=== PATIENT | male | born 1965 | race Caucasian/White ===

== ENCOUNTER 2020-06-26 10:00 | Inpatient (IN) | payer BC, OTHER ==
[~2020-06-26] VITALS: Ht 193 cm; Wt 68.0 kg
--- NOTE | 2020-06-26 10:18 | Emergency Department Note ---
History of Present Illnes History of Present Illness History of Present Illness This is a 54 year old male smoker, COPD , c/o right sided C/P sharp, pleurisy for few days getting worse . Arrival Mode: Car Food Products Sales Representative Required: No Onset (how long ago): day(s) Radiation: Reports flank Severity: moderate Onset quality: gradual Duration (how long): day(s) Progression: waxing and waning Chronicity: new Relieving factors: none Associated symptoms: Reports denies other symptoms Treatments prior to arrival: none Past Medical/Family History Physician Review I have reviewed the patient's past medical and family history. Any updates have been documented here. Past Medical History Recent Fever: No Clinical Suspicion of Infectio: No Other Medical History: COPD Past Surgical History: Appendectomy Social History Smoking Cessation: Current every day smoker Any Illegal Drug Use: No TB Exposure/Symptoms: No Physically hurt or threatened: No Family History Family history of heart diseas: No Other Any Pre-Existing Lines (PICC,: No Review of Systems Review of Systems Constitutional: Reports no symptoms EENTM: Reports no symptoms Cardiovascular: Reports as per HPI, Reports chest pain Respiratory: Reports as per HPI, Reports cough, Reports pain on inspiration, Reports pain with cough Gastrointestinal: Reports no symptoms Genitourinary: Reports no symptoms Musculoskeletal: Reports no symptoms Integumentary: Reports no symptoms Neurological: Reports no symptoms Psychological: Reports no symptoms Endocrine: Reports no symptoms Hematological/Lymphatic: Reports no symptoms Physical Exam Related Data Allergies: Coded Allergies: No Known Allergies (Unverified , 12/01/19) Vital signs reviewed: Yes Physical Exam CONSTITUTIONAL Constitutional: Present well-developed, Present well-nourished HENT HENT: Present normocephalic, Present atraumatic, Present oropharynx clear/moist, Present nose normal HENT L/R: Present left ext ear normal, Present right ext ear normal EYES Eyes: Reports PERRL, Reports conjunctivae normal NECK Neck: Present ROM normal PULMONARY Pulmonary: Present effort normal, Present chest tenderness, Present other (diminished BS on the right ) CARDIOVASCULAR Cardiovascular: Present regular rhythm, Present heart sounds normal, Present capillary refill normal, Present normal rate GASTROINTESTINAL Abdominal: Present soft, Present nontender, Present bowel sounds normal GENITOURINARY Genitourinary: Present exam deferred SKIN Skin: Present warm, Present dry MUSCULOSKELETAL Musculoskeletal: Present ROM normal NEUROLOGICAL Neurological: Present alert, Present oriented x 3, Present no gross motor or sensory deficits PSYCHOLOGICAL Psychological: Present mood/affect normal, Present judgement normal Results Laboratory Lab results reviewed: Yes Imaging Imaging results reviewed: Yes Diagnostics Tests Diagnostic comments post chest Tube: no pneumo seen Procedures 12 Lead ECG Interpretation ECG Interpretation : ECG: ECG 1 Food Products Sales Representative: Interpreted by ED physician Date: Jun 26, 2020 Time: 10:11 Prior ECG tracings: reviewed Rhythm: sinus tachycardia QRS axis: normal ST segments normal: Yes Clinical Impression: abnormal ECG Chest Tube Placement Chest Tube : Chest tube: chest tube 1 Chest tube location: right, mid axillary line Chest tube prep: betadine prep Amount of anesthesia used (mL): 8 Incision made with: #11 blade Post procedure: sutured to skin, sterile dressing applied Tube drainage: none Post procedure chest xray: Yes Patient tolerated procedure: Yes Progress pneumothorax kits use, 8 Fr tube Perimortem Patient tolerated procedure: well Additional comments pt received 4 mg morphine, 2 mg ativan Assessment & Plan Medical Decision Making MDM pna, Cancer, PE, chest wall pain Reassessment Reassessment time: 13:14 Reassessment doing better Assessment & Plan Final Impression: (1) Pneumothorax, acute (2) Pneumothorax on right (3) Chest pain in adult Depart Disposition: ADMITTED Home Meds No Active Prescriptions or Reported Meds Physician Attestation Provider Attestation case discussed with Dr Sanabria and JEANETH Holguin MD Jun 26, 2020 10:18
--- NOTE | 2020-06-26 10:35 | Diagnostic Imaging Report ---
EXAMINATION: CXR 2 VIEW - HOPD INDICATION: Shortness of breath, chest pain COMPARISON: None FINDINGS: LINES/TUBES:None LUNGS:The lungs are well-inflated. No focal consolidation or pulmonary edema. PLEURA:Circumferential right pneumothorax measuring up to a maximum thickness of 3.9 cm at the right apex. No left pneumothorax. No pleural effusion. MEDIASTINUM:The cardiomediastinal silhouette appears normal in size and shape. BONES/SOFT TISSUES:No acute osseous injury. ABDOMEN:No free air under the diaphragm. IMPRESSION: Right pneumothorax measures up to 3.9 cm. No focal pneumonia or pulmonary edema. The above findings were discussed with Dr. Martin on 06/26/2020 10:30 AM, who responded indicating that the communication was understood. Signed by: Ar Fenton MD on 06/26/2020 10:32 AM
--- OUTSIDE RECORDS SUMMARY | 2020-06-26 11:17 | XMS REPORT | Continuity of Care Document ---
Author Author [facility] t Organization [facility] Address [address] Kaur [address] [place] [address] Phone Unavailable Care Team Providers Care Auditor In Charge Name Role Phone NO, PCP PCP Unavailable José MARTIN Unavailable Payers Payer Name Policy Type Policy Number Effective Date Expiration Date S nayely [employer] Of [facility] [id number] 2016 00:00:00 [facility] Problems This patient has no known problems. Allergies, Adverse Reactions, Alerts This patient has no known allergies or adverse reactions. Medications This patient has no known medications. Procedures This patient has no known procedures. Encounters Start Date/Time End Date/Time Encounter Type Admission Type [facility] Department Encounter ID Source 2019-12-01 08:15:00 2019-12-01 10:00:00 Departed Emergency Room 1 JEANETH MART[facility] [id number] [facility] Results Test Description Test Time Test Comments Results Result Comments Source CXR 2 VIEW - HOPD 2020-06-26 10:26:00 [facility] [address] [place] [id number] Patient Name: KARINA GIBSON MR #: [id number] : 1965 Age/Sex: 54/M Req #: [id number] Adm Physician: Ordered by: JEANETH MARTIN MD Report #: [id number] Location: [facility] Room/Bed: Procedure: [id number] HOPD/CXR 2 VIEW - HOPD Exam Date: 06/26/20 Exam Time: 1022 REPORT STATUS: Signed EXAMINATION: CXR 2 VIEW - HOPD INDICATION: Shortness of breath, chest pain COMPARISON: None FINDINGS: LINES/TUBES:None LUNGS:The lungs are well-inflated. No focal consolidation or pulmonary edema. PLEURA:Circumferential right pneumothorax measuring up to a maximum thickness of 3.9 cm at the right apex. No left pneumothorax. No pleural effusion. MEDIASTINUM:The cardiomediastinal silhouette appears normal in size and shape. BONES/SOFT TISSUES:No acute osseous injury. ABDOMEN:No free air under the diaphragm. IMPRESSION: Right pneumothorax measures up to 3.9 cm. No focal pneumonia or pulmonary edema. The above findings were discussed with Dr. Martin on 06/26/2020 10:30 AM, who responded indicating that the communication was understood. Signed by: Pablito Kaufman MD on 06/26/2020 10:32 AM Dictated By: PABLITO KAUFMAN MD 1032 Transcribed By: SG on 06/26/20 1032 COPY TO: JEANETH MARTIN MD CXR 2 VIEW - HOPD 2019-12-01 08:54:00 [place] [address] Patient Name: KARINA GIBSON MR #: [id number] : 1965 Age/Sex: 54/M Req #: [id number] Adm Physician: Ordered by: JEANETH MARTIN MD Report #: [id number] [facility] Room/Bed: Procedure: [id number] HOPD/CXR 2 VIEW - HOPD Exam Date: 12/01/19 Exam Time: 0840 REPORT STATUS: Signed EXAMINATION: CXR 2 VIEW - HOPD INDICATION: Flulike symptoms, cough and congestion [id number] COMPARISON: None FINDINGS: PA and lateral views TUBES and LINES: None. LUNGS: Diffuse hyperinflation suggestive of emphysema. There is no evidence of pneumonia or pulmonary edema. PLEURA: No pleural effusion or pneumothorax. HEART AND MEDIASTINUM: The cardiomediastinal silhouette is unremarkable. BONES AND SOFT TISSUES: The bones are diffusely demineralized. No focal osseous lesions. Soft tissues are unremarkable. UPPER ABDOMEN: Unremarkable. IMPRESSION: Pulmonary hyperinflation suggestive of emphysema. No acute pulmonary process. Signed by: Dr. Deven Cruz MD on 12/01/2019 8:55 AM Dictated By: DEVEN CRUZ MD 4 Transcribed By: SG on 12/01/19854 COPY TO: JEANETH MARTIN MD
[2020-06-26] MEDS ORDERED: MORPHINE SULFATE INJ 4 MG/ML INJ 1ML ONE (12:07)
[2020-06-26] MEDS ORDERED: ONDANSETRON HCL INJ 2MG/ML 2ML 2 MG/ML VIAL ONE (12:07)
[2020-06-26] MEDS ORDERED: LORAZEPAM INJ 2 MG/ML VIAL ONE (12:25)
[2020-06-26] MEDS ORDERED: LIDOCAINE HCL 2% LOCAL 20 ML VIAL ONE (12:29)
[2020-06-26] MEDS ORDERED: SODIUM CHLORIDE FLUSH 10 ML SYR INJ PRN (12:30)
[2020-06-26] MEDS ORDERED: DIPHENHYDRAMINE HCL INJ 50 MG/ML VIAL IV PRN (12:30)
[2020-06-26] MEDS ORDERED: MORPHINE SULFATE INJ 4 MG/ML INJ 1ML IV PRN (12:30)
[2020-06-26] MEDS ORDERED: ONDANSETRON HCL INJ 2MG/ML 2ML 2 MG/ML VIAL IV STA (12:37)
[2020-06-26] MEDS ORDERED: MORPHINE SULFATE INJ 4 MG/ML INJ 1ML IV STA (12:37)
[2020-06-26] MEDS ORDERED: LORAZEPAM INJ 2 MG/ML VIAL IV ONE (12:45)
--- OUTSIDE RECORDS SUMMARY | 2020-06-26 12:57 | XMS REPORT | Continuity of Care Document ---
Author Author [facility] t Organization [facility] Address [address] Kaur [address] [place] [phone] Phone Unavailable Care Team Providers Care Foxer Name Role Phone NO, PCP PCP Unavailable José MARTIN Unavailable Payers Payer Name Policy Type Policy Number Effective Date Expiration Date S nayely [employer] [facility] [id number] 2016 00:00:00 [facility] Problems This patient has no known problems. Allergies, Adverse Reactions, Alerts This patient has no known allergies or adverse reactions. Medications This patient has no known medications. Procedures This patient has no known procedures. Encounters Start Date/Time End Date/Time Encounter Type Admission Type [facility] Care Department Encounter ID Source 2019-12-01 08:15:00 2019-12-01 10:00:00 Departed Emergency Room 1 JEANETH MARTIN [facility] [id number] [facility] Results Test Description Test Time Test Comments Results Result Comments Source CXR 2 VIEW - HOPD 2020-06-26 10:26:00 [facility] [address] [place] [address] Patient Name: KARINA GIBSON MR #: [id number] : 1965 Age/Sex: 54/M Req #: [id number] Adm Physician: Ordered by: JEANETH MARTIN MD Report #: [id number] Location: [facility] Room/Bed: Procedure: [id number] HOPD/CXR 2 VIEW - HOPD Exam Date: [...] CXR 2 VIEW - HOPD 2019-12-01 08:54:00 [place] [address] Patient Name: KARINA GIBSON MR #: [id number] : 1965 Age/Sex: 54/M Req #: [id number] Adm Physician: Ordered by: JEANETH MARTIN MD Report #: [id number] Location: [facility] Room/Bed: Procedure: [id number] HOPD/CXR 2 VIEW - HOPD Exam Date: [...]
--- NOTE | 2020-06-26 13:46 | NUR ---
Called [facility] to transport pt to room 215
--- NOTE | 2020-06-26 13:54 | Diagnostic Imaging Report ---
EXAMINATION: CXR 1 [facility] INDICATION: Status post chest tube placement. COMPARISON: Chest radiograph 06/26/2020 FINDINGS: LINES/TUBES:Interval placement of right mid chest tube. LUNGS:The lungs are well-inflated. Increased patchy right basilar opacity. Left lung is clear. PLEURA: Increased right apical pneumothorax, measuring up to 4.7 cm, previously 3.9 cm. No left pneumothorax. Small right pleural effusion. MEDIASTINUM:The cardiomediastinal silhouette appears normal in size and shape. BONES/SOFT TISSUES:No acute osseous injury. ABDOMEN:No free air under the diaphragm. IMPRESSION: Status post right sided chest tube placement. Increased right apical pneumothorax, measuring up to 4.7 cm, previously 3.9 cm. Increasing patchy right basilar opacity, likely atelectasis. Signed by: Dr. Jodi Rainey MD on 06/26/2020 1:51 PM
--- NOTE | 2020-06-26 15:01 | NUR ---
Report to BLAINE Price
--- NOTE | 2020-06-26 15:15 | NUR ---
RCD PATIENT FROM [facility] BY STRETCHER PT IS ALERT AND ORIENTED HAVE CHEST TUBE ON THE RIGHT SIDE ,PT RESTING ON BED NO SIGNS OF ANY DISTRESS NOTED ,IV PATENT BY SALINE FLUSH .ADMISSION ASSESSMENT AND HISTORY DONE ,INSTRUCTED THE PT REGARDING HOSPITAL POLICY AND ROUTINE ,BED LOW AND LOCKED CALL LIGHT IN REACH,CHEST TUBE SET UP WITH JOSELINE FROM ICU ITS WORKING GOOD
[2020-06-26 15:39] VITALS: BP 116/63
[2020-06-26] MEDS: FAMOTIDINE 20 MG/2 ML VIAL IV SCH (17:00)
--- NOTE | 2020-06-26 17:00 | NUR ---
PT ON CONTINUOUS PULSE OXIMETER
[2020-06-26 17:05] VITALS: BP 116/63
[2020-06-26] MEDS: ONDANSETRON HCL INJ 2MG/ML 2ML 2 MG/ML VIAL IV PRN (17:29)
[2020-06-26] MEDS: MORPHINE SULFATE INJ 4 MG/ML INJ 1ML IV PRN ×2 (17:29→21:42)
[2020-06-26] MEDS: NICOTINE 14 MG/EA PATCH TOP SCH (17:29)
[2020-06-26 17:35] VITALS: BP 166/63
--- NOTE | 2020-06-26 18:42 | NUR ---
PT RESTING ON BED BED SIDE REPORT GIVEN TO ONCOMING NURS
[2020-06-26 20:00] VITALS: BP 102/63
[2020-06-26] MEDS ORDERED: ZOLPIDEM TARTRATE 5 MG TAB PO PRN (21:00)
[2020-06-26] MEDS ORDERED: ZOLPIDEM TARTRATE 10 MG TAB PO PRN (21:00)
[2020-06-26 21:40] VITALS: BP 111/52
--- NOTE | 2020-06-26 22:26 | Consultation ---
DATE OF CONSULTATION: Pulmonary Critical Care Consultation CHIEF COMPLAINT: Chest discomfort and dyspnea. HISTORY OF PRESENT ILLNESS: The patient is a 54-year-old man. He has a history of COPD, but does not use any inhalers. He has been working and has a good exercise tolerance. This morning, he woke up with pain in the right side of his chest, it was worse with inspiration. He noted some mild dyspnea. It progressed during the day and he went to the emergency department. In the emergency department, he was found to have a pneumothorax on the right side. A chest tube was placed by ER doctor and there was good respiratory variation and some air leak. PAST MEDICAL HISTORY: 1. COPD. 2. No prior heart disease. 3. No prior history of diabetes. ALLERGIES: NO KNOWN DRUG ALLERGIES. PAST SURGICAL HISTORY: The patient denies any prior surgeries. SOCIAL HISTORY: The patient has been smoking up until very recently. He is not a drinker. FAMILY HISTORY: Noncontributory. REVIEW OF SYSTEMS: The patient denies fevers. There is no headache. He has no neck pain. He does have some dyspnea and some pain with inspiration. He has no abdominal pain. There is no nausea or vomiting. There is no leg swelling. PHYSICAL EXAMINATION: VITAL SIGNS: The blood pressure is 116/63, saturation is 97% on 2 L and the heart rate is 55 to 60. HEENT: Shows no facial swelling or erythema. LYMPHATIC: Shows no submandibular, cervical, or supraclavicular adenopathy. CARDIAC: Reveals regular rate and rhythm with normal S1, S2. LUNGS: Auscultation of lungs shows decreased breath sounds on the right side. There is a small pigtail chest tube in the lateral thorax. There was good air leak. ABDOMEN: Soft, nontender. There is no rebound or guarding. NEUROLOGICAL: Shows no focal abnormalities. IMPRESSION: 1. Pneumothorax, possibly secondary to chronic obstructive pulmonary disease. 2. Chronic obstructive pulmonary disease. PLAN: 1. Continue chest tube to suction overnight. 2. Repeat chest x-ray tomorrow. 3. Continue bronchodilators as needed. 4. Smoking cessation. MD DAISY Ramey/REJI /[id number]
[2020-06-26] MEDS ORDERED: DOCUSATE SODIUM 100 MG CAP PO PRN (23:45)
[2020-06-26] MEDS ORDERED: HYDRALAZINE HCL 20 MG/ML VIAL IV PRN (23:45)
[2020-06-27] VITALS (9 sets, daily range): BP systolic 97–123; BP diastolic 60–73
[2020-06-27] MEDS: MORPHINE SULFATE INJ 4 MG/ML INJ 1ML IV PRN ×2 (04:39→10:50)
[2020-06-27 05:14] LABS: BASOPHILS # (AUTO) 0.1 (0.0-0.1); BASOPHILS % 0.7 % (0.0-1.0); EOSINOPHILS # (AUTO) 0.2 (0.0-0.4); EOSINOPHILS % 2.5 % (0.0-6.0); HEMATOCRIT 41.2 % (38.2-49.6); HEMOGLOBIN 13.9 g/dL (14.0-18.0); LYMPHOCYTES # (AUTO) 3.3 (1.0-3.2); LYMPHOCYTES % 45.3 % (18.0-39.1); MEAN CORPUSCULAR HGB CONC 33.7 g/dL (31-35); MONOCYTES # (AUTO) 0.7 (0.2-0.8); MONOCYTES % 9.7 % (4.4-11.3); NEUTROPHILS % 41.5 % (38.7-80.0); PLATELET COUNT 211 x10e3/uL (140-360); RED BLOOD COUNT 4.48 x10e6/uL (4.3-5.7); RED CELL DISTRIBUTION WIDTH 12.8 % (11.7-14.4)
[2020-06-27 05:36] LABS: ALANINE AMINOTRANSFERASE 61 IU/L (0-55); ALBUMIN 3.9 g/dL (3.5-5.0); ALBUMIN/GLOBULIN RATIO 1.1 (0.8-2.0); ALKALINE PHOSPHATASE 60 IU/L (40-150); ANION GAP 10.8 mmol/L (8-16); BLOOD UREA NITROGEN 15 mg/dL (7-26); BUN/CREATININE RATIO 16 (6-25); CARBON DIOXIDE 26 mmol/L (22-29); CHLORIDE 105 mmol/L (98-107); CREATININE, SERUM 0.92 mg/dL (0.72-1.25); EST GLOMERULAR FILTRATION RATE > 60 ML/MIN (60-); GLUCOSE 85 mg/dL (74-118); POTASSIUM 4.8 mmol/L (3.5-5.1); SODIUM 137 mmol/L (136-145)
--- NOTE | 2020-06-27 07:09 | NUR ---
REPORT GIVEN TO DAYSHIFT NURSE. ALERT AND RESTING IN BED. NO SIGNS IV INFILTRATION. BED LOCKED AND IN LOW POSITION. CALL LIGHT WITHIN REACH.
--- NOTE | 2020-06-27 07:10 | NUR ---
RCD PT AT BED PT IS ALERT AND ORIENTED IV PATENT BY SALINE FLUSH , CHEST TUBE WORKING GOOD ,BED LOW AND LOCKED CALL LIGHT IN REACH
[2020-06-27] MEDS: FAMOTIDINE 20 MG/2 ML VIAL IV SCH ×2 (09:00→16:54)
--- NOTE | 2020-06-27 10:13 | Progress Note ---
DATE: SUBJECTIVE: The patient still complains of some discomfort. He has a chest tube in place on the right side with a small air leak. PHYSICAL EXAMINATION: VITAL SIGNS: Blood pressure is 108/64, saturation is 97% on 2 L, and pulse is 50 to 60. HEENT: No facial swelling or erythema. LYMPHATIC: No submandibular, cervical, or supraclavicular adenopathy. CARDIAC: Reveals regular rate and rhythm with normal S1 and S2. LUNGS: Auscultation of lungs shows decreased breath sounds at the bases. There is no wheezing. ABDOMEN: Soft and nontender. There is no rebound or guarding. EXTREMITIES: No leg edema or calf tenderness. There is no cyanosis or clubbing. SKIN: No rashes. NEUROLOGIC: No focal abnormalities. LABORATORY DATA: White blood cell count is 7.3, hemoglobin is 13.9, and platelet count is 211. BUN to creatinine ratio is normal. AST and ALT are normal. RADIOGRAPHIC DATA: Chest x-ray shows some incomplete expansion of the right lung. There is still an apical pneumothorax about 20% to 30%. IMPRESSION: 1. Spontaneous pneumothorax secondary to chronic obstructive pulmonary disease. 2. Chronic obstructive pulmonary disease. PLAN: 1. Anterior pigtail catheter to be placed by Radiology. 2. Continue to monitor chest x-rays. 3. Smoking cessation. 4. Alpha-1 antitrypsin level is pending. Manjit Cabrera MD LMH/MODL /[id number]
[2020-06-27 10:38] LABS: INR 0.97; PARTIAL THROMBOPLASTIN TIME 35.3 seconds (23.8-35.5); PROTHROMBIN TIME 13.4 seconds (11.9-14.5)
[2020-06-27] MEDS: ONDANSETRON HCL INJ 2MG/ML 2ML 2 MG/ML VIAL IV PRN ×2 (10:50→18:12)
--- NOTE | 2020-06-27 11:04 | Diagnostic Imaging Report ---
EXAMINATION: CHEST 2 VIEWS INDICATION: Pneumothorax. COMPARISON: . FINDINGS: TUBES and LINES: Thin caliber tube projected on the lateral mid right hemithorax. LUNGS: Lungs are well inflated. Lungs are hyperinflated. Mild patchy groundglass density in the lower lobes. Bilateral perihilar, peribronchial thickening. PLEURA: Interval decrease in right apical pneumothorax now with an air gap of 3.1 cm. HEART AND MEDIASTINUM: The cardiomediastinal silhouette is unremarkable. BONES AND SOFT TISSUES: No acute osseous lesion. Soft tissues are unremarkable. UPPER ABDOMEN: No free air under the diaphragm. IMPRESSION: Interval decrease in right apical pneumothorax now with an air gap of 3.1 cm. Signed by: Dr. Celestino Sahni M.D. on 06/27/2020 11:00 AM
[2020-06-27] MEDS: NICOTINE 14 MG/EA PATCH TOP SCH (12:30)
--- NOTE | 2020-06-27 13:12 | NUR ---
AC TO RADIOLOGY PAGED DR CARDENAS TO KNOW THAT HE OK WITH CT ON THE CHEST WITHOUT CONTRAST AND LEFT THE MESSAGE
--- NOTE | 2020-06-27 13:45 | NUR ---
PAGED AND TALKED DR PERAZA ,HE SAID DR AMIN IS THE ADMITTING DOCTOR ,SO WE CHANGED THE ATTENDING TO DR AMIN
--- NOTE | 2020-06-27 13:59 | NUR ---
DR CARDENAS RETURNED THE CALL HE IS OK TO DO THE CT ON CHEST WITHOUT CONTRAST
[2020-06-27] MEDS ORDERED: LORAZEPAM 0.5 MG TAB PO ONE (14:15)
--- NOTE | 2020-06-27 14:22 | NUR ---
CANCELLED THE PROCEDURE
--- NOTE | 2020-06-27 15:27 | NUR ---
PT WENT TO PROCEDURE IN SAFE CONDITION
[2020-06-27] MEDS ORDERED: MORPHINE SULFATE INJ 4 MG/ML INJ 1ML IV PRN (15:45)
--- NOTE | 2020-06-27 16:12 | Diagnostic Imaging Report ---
EXAM: CT Chest WITHOUT contrast 06/27/2020 3:35 PM INDICATION: Pneumothorax. COMPARISON: None TECHNIQUE: Chest was scanned utilizing a multidetector helical scanner from the lung apex through the level of the adrenal glands without administration of IV contrast. Absence of intravenous contrast decreases sensitivity for detection of lymphadenopathy and vascular pathology. Coronal and sagittal reformations were obtained. Routine protocol was performed. IV CONTRAST: None RADIATION DOSE: Total DLP: 421.05 mGy*cm Estimated effective dose: (DLP x 0.014 x size factor) mSv COMPLICATIONS: None FINDINGS: LINES/ TUBES: Thin caliber right thoracostomy tube enters the right hemithorax at the level of the right middle lobe, with distal tip in the superior lateral right hemithorax. LUNGS AND AIRWAYS: Bilateral upper lobe paraseptal and centrilobular emphysematous changes. Patchy consolidation in the posterior right lower lobe with air bronchograms. Delayed like atelectasis in the superior segment of the right lower lobe. 2.5 cm bleb in the medial left apex. PLEURA: There is a small right hemithorax with an air gap of 2.3 cm inferiorly. HEART AND MEDIASTINUM: The thyroid gland is normal. No mediastinal, hilar or axillary lymphadenopathy. The heart is normal in size.. There is no pericardial effusion. There are mild atherosclerotic calcifications in the aorta and coronary arteries. UPPER ABDOMEN: Limited non-contrast views of the upper abdomen show no abnormality within the visualized liver, spleen, pancreas, or kidneys. The adrenal glands are normal. BONES: Multilevel small thoracolumbar Schmorl nodes. SOFT TISSUES: Unremarkable. IMPRESSION: 1. Small right sided pneumothorax. Thin caliber thoracostomy tube in place. 2. Right lower lobe consolidation. Signed by: Dr. Celestino Sahni M.D. on 06/27/2020 4:08 PM
--- NOTE | 2020-06-27 16:15 | NUR ---
TALKED TO THE RADIOLOGY REGARDING THE CHEST TUBE PLACEMENT THEY SAID THEY WANTED TO TALK TO THE RADIOLOGIST
--- NOTE | 2020-06-27 17:30 | NUR ---
AGAIN TALKED THE RADIOLOGY REGARDING THE PROCEDURE
--- NOTE | 2020-06-27 17:50 | NUR ---
NOTIFIED THE CNC MILL OPERATOR ,SHE TALKED TO THE RADIOLOGY
--- NOTE | 2020-06-27 17:54 | NUR ---
RADIOLOGY DR WANTED TO SPEAK WITH DR RONLAD FLORIAN SO PAGED DR CARDENAS AND GIVEN THE RADIOLOGIST PHONE NUMBER HE SAID ITS OK
--- NOTE | 2020-06-27 18:05 | NUR ---
DR GEOVANI CARDENAS RETURNED THE CALL HE SAID HE DONT NEED ANY CHEST TUBE PLACEMENT AND CHEST XRAY ON TOMORROW
--- NOTE | 2020-06-27 18:10 | NUR ---
NOTIFIED THE PATIENT REGARDING THE CHEST TUBE
[2020-06-27] MEDS: MORPHINE SULFATE 2 MG/ML SYR 1ML IV PRN ×2 (18:12→23:00)
--- NOTE | 2020-06-27 19:17 | NUR ---
PT RESTING ON BED BED SIDE REPORT GIVEN TO ONCOMING NURSE
--- NOTE | 2020-06-27 21:36 | History and Physical ---
CHIEF COMPLAINT: Shortness of breath. HISTORY OF PRESENT ILLNESS: A 54-year-old male with known history of COPD, chronic smoker, woke up yesterday complaining of acute onset of right-sided shortness of breath and rib pain. The patient went to the emergency room, found to have a pneumothorax on imaging studies. The patient denies any trauma. He is very noncompliant patient. Currently, has a chest tube in place. He is in the process of getting another chest tube upgraded for assistance in the pneumothorax. The patient was seen and evaluated at bedside on the medical floor. He is currently doing well with no other issues at this time. REVIEW OF SYSTEMS: Pertinent positive: Shortness of breath, right-sided rib pain. The rest of 14-point review of systems have been reviewed with the patient and are negative. ALLERGIES: NO KNOWN DRUG ALLERGIES. HOME MEDICATIONS: None. PAST MEDICAL HISTORY: He has COPD, but very noncompliant with his medications. PAST SURGICAL HISTORY: Reports none. FAMILY HISTORY: Hypertension and diabetes. SOCIAL HISTORY: No drugs. No alcohol. He is a chronic smoker. He continues to smoke. LABORATORY DATA: Labs show white count 7.3, hemoglobin 13.9, hematocrit 41, platelets of 211. Chemistry, sodium 137, potassium 4.8, chloride 105, bicarb 26, anion gap of 10. BUN is 15, creatinine 0.92. Calcium is 9, total bilirubin is 0.7. AST 45, ALT 61, alkaline phosphatase is 60, total protein 7.4, albumin is 3.9. Coagulation; PT 13, INR 0.97, PTT is 35. Serology coronavirus is pending. MICROBIOLOGY: None. IMAGING STUDIES: Chest x-ray shows right pneumothorax, measuring 3.9 cm. No focal pneumonia or pulmonary edema appreciated. Chest x-ray this morning on 06/27/2020, shows interval decrease in right apical pneumothorax, now with air gap of 3.1 cm. PHYSICAL EXAMINATION: VITAL SIGNS: Temperature is 98.1, pulse 53, respiratory rate 19, blood pressure is 120/69, pulse ox 98% on 3 L nasal cannula. He has a right-sided chest tube. GENERAL: Not in acute distress. Alert and oriented x3. Cooperative on examination. HEENT: Head; normocephalic, atraumatic. Eyes; pupils are equal, round, and reactive to light bilaterally. Extraocular movements intact bilaterally. Throat; no evidence of erythema or exudates in the posterior pharynx. Has poor dentition. NECK: Supple. Good range of motion. PULMONARY: Clear to auscultation bilaterally. No wheezing, no rales, no rhonchi, no crackles appreciated. CARDIOVASCULAR: Positive S1 and S2. No murmurs, rubs, or gallops appreciated. ABDOMEN: Soft, nondistended, and nontender to palpation. Bowel sounds present. MUSCULOSKELETAL: Strength is 5/5 throughout. No evidence of any muscle deficits on examination. No weakness appreciated. NEUROLOGIC: Cranial nerves 2 through 12 grossly intact. No evidence of any neurological deficits on exam. SKIN: Intact, warm to touch. Good cap refill. PSYCHIATRIC: Normal affect and mood. EXTREMITIES: No edema. Good range of motion throughout IMPRESSION: 1. Acute spontaneous pneumothorax, now status post chest tube placement. 2. Chronic obstructive pulmonary disease. 3. Medical noncompliance. 4. Chronic opioid dependency. PLAN: At this time, the patient had a spontaneous pneumothorax when he woke up yesterday. A chest tube is in place. Repeat chest x-ray still shows some expansion of the pneumothorax and which I spoke with Pulmonary and IR has been consulted for re-insertion of another chest tube. Continue with same plan of care. We added a nicotine patch. We will add Lovenox after the procedure, likely tomorrow for DVT prophylaxis. Pain control noted. Get morning labs. Discussed plan of care with surgical product sales consultant. I also discussed this with the patient and the nursing staff. MD BOB Mosley/REJI /[id number]
[2020-06-28] VITALS (8 sets, daily range): BP systolic 101–124; BP diastolic 69–73
--- NOTE | 2020-06-28 01:05 | NUR ---
patient received awake, alert, sitting up in bed. respirations even and unlabored. patient denies pain at this time. call rodriguez placed within reach. patient instructed to call for assistance when needed.
[2020-06-28] MEDS: MORPHINE SULFATE 2 MG/ML SYR 1ML IV PRN ×5 (03:30→22:32)
[2020-06-28] MEDS: ONDANSETRON HCL INJ 2MG/ML 2ML 2 MG/ML VIAL IV PRN ×4 (03:30→18:31)
[2020-06-28 06:38] LABS: BASOPHILS # (AUTO) 0.1 (0.0-0.1); BASOPHILS % 0.7 % (0.0-1.0); EOSINOPHILS # (AUTO) 0.2 (0.0-0.4); EOSINOPHILS % 3.3 % (0.0-6.0); HEMATOCRIT 39.3 % (38.2-49.6); HEMOGLOBIN 13.3 g/dL (14.0-18.0); LYMPHOCYTES % 43.1 % (18.0-39.1); MEAN CORPUSCULAR HGB CONC 33.8 g/dL (31-35); MEAN CORPUSCULAR VOLUME 91.6 fL (81-99); MONOCYTES # (AUTO) 0.7 (0.2-0.8); MONOCYTES % 10.6 % (4.4-11.3); NEUTROPHILS # (AUTO) 2.9 (2.1-6.9); PLATELET COUNT 205 x10e3/uL (140-360); RED BLOOD COUNT 4.29 x10e6/uL (4.3-5.7); RED CELL DISTRIBUTION WIDTH 12.5 % (11.7-14.4)
[2020-06-28 06:56] LABS: ANION GAP 11.4 mmol/L (8-16); BLOOD UREA NITROGEN 15 mg/dL (7-26); BUN/CREATININE RATIO 18 (6-25); CALCIUM 8.9 mg/dL (8.4-10.2); CARBON DIOXIDE 28 mmol/L (22-29); CHLORIDE 102 mmol/L (98-107); CREATININE, SERUM 0.85 mg/dL (0.72-1.25); EST GLOMERULAR FILTRATION RATE > 60 ML/MIN (60-); GLUCOSE 77 mg/dL (74-118); POTASSIUM 4.4 mmol/L (3.5-5.1); SODIUM 137 mmol/L (136-145)
--- NOTE | 2020-06-28 07:00 | NUR ---
RCD PT AT BED PT IS ALERT AND ORIENTED RESTING ON BED IV PATENT BY SALINE FLUSH , BED LOW AND LOCKED CALL LIGHT IN REACH
--- NOTE | 2020-06-28 08:28 | Diagnostic Imaging Report ---
EXAMINATION: CHEST 2 VIEWS INDICATION: ^PNEUMOTHORAX ^[id number] ^0800 ^Y COMPARISON: CT chest 06/27/2020, chest x-ray 06/26/2020 FINDINGS: PA and lateral views TUBES and LINES: Thin bore catheter in the lateral aspect of the right hemithorax LUNGS: Diffuse pulmonary hyperinflation consistent with COPD/emphysema. There is no evidence of pneumonia or pulmonary edema. PLEURA: Apical pneumothorax measures 1.5 cm (previously, 1.7 cm). No pleural effusions. HEART AND MEDIASTINUM: The cardiomediastinal silhouette is unremarkable.. BONES AND SOFT TISSUES: No focal osseous lesions. Soft tissues are unremarkable. UPPER ABDOMEN: Unremarkable. IMPRESSION: Smaller right pneumothorax after chest tube placement. No new cardiopulmonary findings. Signed by: Dr. Charan Cruz MD on 06/28/2020 8:23 AM
[2020-06-28] MEDS: FAMOTIDINE 20 MG/2 ML VIAL IV SCH ×2 (09:00→17:00)
[2020-06-28] MEDS: NICOTINE 14 MG/EA PATCH TOP SCH (12:30)
--- NOTE | 2020-06-28 15:19 | Progress Note ---
DATE: 06/28/2020 ADDENDUM: I reviewed [facility] chart [facility]. The patient had an elevated D-dimer. I did go ahead and order a V/Q scan as well as a lower extremity venous Doppler. Also repeated troponins and repeat another D-dimer here in our facility. I discussed this with the patient. He verbalized understanding. I have also discussed with the nursing staff to let me know the results of the D-dimer and troponins. MD BOB Mosley/MODL /[id number]
[2020-06-28] MEDS: ENOXAPARIN SOD INJ 40 MG/0.4 ML SYR SC SCH (17:00)
--- NOTE | 2020-06-28 17:34 | Progress Note ---
DATE: 06/28/2020 Medicine Progress Note SUBJECTIVE: The patient is doing very well. He is alert, awake, and oriented with no issues. He still has a chest tube in place. There was no need for healthcare for a chest tube according to the nursing staff. PHYSICAL EXAMINATION: VITAL SIGNS: Temperature is 98.3, pulse 60, respiratory rate is 20, blood pressure is 106/70, and pulse ox 100% on 2 L nasal cannula. GENERAL: Not in acute distress. Alert and oriented x3. He is cooperative on examination. HEENT: Head; normocephalic, atraumatic. Eyes; pupils are equal, round, and reactive to light bilaterally. Extraocular movements intact bilaterally. Throat; no evidence of erythema or exudates in the posterior pharynx. Has poor dentition. NECK: Supple. Good range of motion. PULMONARY: Clear to auscultation bilaterally. No wheezing, no rales, no rhonchi, no crackles appreciated. CARDIOVASCULAR: Positive S1 and S2. No murmurs, rubs, or gallops appreciated. ABDOMEN: Soft, nondistended, and nontender to palpation. Bowel sounds present. MUSCULOSKELETAL: Strength is 5/5 throughout. No evidence of any muscle deficits on examination. No weakness appreciated. NEUROLOGIC: Cranial nerves 2 through 12 grossly intact. No evidence of any neurological deficits on exam. SKIN: Intact. Warm to touch. Good cap refill. PSYCHIATRIC: Normal affect and mood. EXTREMITIES: No edema. Good range of motion throughout. LABORATORY FINDINGS: Show white count is 6.8, hemoglobin 13, hematocrit is 39, and platelets of 205. Chemistry; sodium 137, potassium 4.4, chloride 102, bicarb 20, anion gap of 11, BUN is 15, creatinine is 0.85, and calcium is 8.9. LFTs were noted. Total bilirubin is 0.7, AST 45, ALT 61, and alkaline phosphatase 60. Serology; coronavirus is pending. IMAGING STUDIES: Repeat chest x-ray this morning shows a small right pneumothorax after chest tube placement. No new cardiopulmonary findings. IMPRESSION: 1. Acute spontaneous pneumothorax, status post chest tube placement. 2. Chronic obstructive pulmonary disease. 3. Medical noncompliance. 4. Chronic opiate dependency. PLAN: At this time, the patient still has a right-sided chest tube. Repeat chest x-ray shows a smaller area of the pneumothorax. The patient otherwise doing well. Get repeat labs in the morning. Lovenox for DVT prophylaxis. Get a.m. labs. Discussed plan of care with nursing staff. Once chest tube is removed and stable, we will discharge home. MD BOB Mosley/MODMolly /[id number]
--- NOTE | 2020-06-28 17:36 | NUR ---
PAGED AND NOTIFIED THE DE DIMER AND TROPONIN VALUE HE SAID ITS OK NO NEW ORDERS
--- NOTE | 2020-06-28 18:40 | NUR ---
PT RESTING ON BED BED SIDE REPORT GIVEN TO ONCOMING NURSE
--- NOTE | 2020-06-28 19:44 | Progress Note ---
DATE: SUBJECTIVE: The patient is having less chest pain. He went for a CT scan of the chest yesterday that showed only a small right-sided pneumothorax. PHYSICAL EXAMINATION: VITAL SIGNS: The blood pressure is 123/71, saturation is 100% on 3 L, and the pulse is 64. HEENT: Shows no facial swelling or erythema. The oropharynx is normal. LYMPHATIC: Shows no submandibular, cervical, or supraclavicular adenopathy. CARDIAC: Reveals regular rate and rhythm with normal S1 and S2. LUNGS: Auscultation of lungs reveals rhonchorous breath sounds bilaterally. There is no wheezing. ABDOMEN: Soft and nontender. There is no rebound or guarding. EXTREMITIES: Shows no leg edema or calf tenderness. LABORATORY DATA: White blood cell count is 6.8 and hemoglobin is 13.3. The platelet count is 205. BUN to creatinine ratio is normal. Other electrolytes are within normal limits. IMPRESSION: 1. Spontaneous pneumothorax secondary to chronic obstructive pulmonary disease. 2. Chronic obstructive pulmonary disease. PLAN: 1. Continue chest tube to suction. He still has an air leak. 2. Repeat PA and lateral chest x-ray tomorrow. 3. Smoking cessation. MD DAISY Ramey/REJI /[id number]
--- NOTE | 2020-06-28 20:30 | NUR ---
PATIENT RESTING IN BED IN STABLE CONDITION, NO SIGNS OF DISTRESS NOTED. CHEST TUBE ON RIGHT SIDE OF CHEST NOTED AND IS PATENT, MINIMAL DRAINAGE NOTED. PATIENT VOICE MINIMAL PAIN AT THIS TIME AND MEDICATION WILL BE GIVEN AROUND THE CLOCK. BED IS IN LOWEST POSITION, BOTH SIDE RAILS ARE UP, CALL LIGHT IS WITHIN EASY REACH, WILL CONTINUE TO MONITOR.
[2020-06-29] VITALS (8 sets, daily range): BP systolic 99–121; BP diastolic 60–74
[2020-06-29] MEDS: MORPHINE SULFATE 2 MG/ML SYR 1ML IV PRN ×5 (04:00→20:32)
[2020-06-29 05:36] LABS: BASOPHILS # (AUTO) 0.1 (0.0-0.1); BASOPHILS % 0.9 % (0.0-1.0); EOSINOPHILS # (AUTO) 0.3 (0.0-0.4); EOSINOPHILS % 5.1 % (0.0-6.0); HEMATOCRIT 39.4 % (38.2-49.6); HEMOGLOBIN 13.4 g/dL (14.0-18.0); LYMPHOCYTES # (AUTO) 2.5 (1.0-3.2); LYMPHOCYTES % 42.6 % (18.0-39.1); MEAN CORPUSCULAR HEMOGLOBIN 31.1 pg (28-32); MEAN CORPUSCULAR VOLUME 91.4 fL (81-99); MONOCYTES # (AUTO) 0.7 (0.2-0.8); MONOCYTES % 11.1 % (4.4-11.3); NEUTROPHILS # (AUTO) 2.4 (2.1-6.9); NEUTROPHILS % 40.1 % (38.7-80.0); PLATELET COUNT 194 x10e3/uL (140-360); RED BLOOD COUNT 4.31 x10e6/uL (4.3-5.7); RED CELL DISTRIBUTION WIDTH 12.5 % (11.7-14.4)
[2020-06-29 06:20] LABS: ANION GAP 10.4 mmol/L (8-16); BLOOD UREA NITROGEN 15 mg/dL (7-26); BUN/CREATININE RATIO 18 (6-25); CALCIUM 8.8 mg/dL (8.4-10.2); CARBON DIOXIDE 27 mmol/L (22-29); CHLORIDE 101 mmol/L (98-107); CREATININE, SERUM 0.82 mg/dL (0.72-1.25); EST GLOMERULAR FILTRATION RATE > 60 ML/MIN (60-); GLUCOSE 96 mg/dL (74-118); POTASSIUM 4.4 mmol/L (3.5-5.1); SODIUM 134 mmol/L (136-145)
[2020-06-29] MEDS: FAMOTIDINE 20 MG/2 ML VIAL IV SCH ×2 (08:43→16:08)
--- NOTE | 2020-06-29 08:51 | Diagnostic Imaging Report ---
EXAMINATION: CHEST 2 VIEWS INDICATION: Pneumothorax COMPARISON: Chest CT of 06/27/2020 FINDINGS: LINES/TUBES:Small right lateral chest tube in place. LUNGS:The lungs are well-inflated. No focal consolidation or pulmonary edema. PLEURA:Small right apical pneumothorax now measures up to 1.4 cm. MEDIASTINUM:The cardiomediastinal silhouette appears unchanged in size and shape. BONES/SOFT TISSUES:No acute osseous injury. ABDOMEN:No free air under the diaphragm. IMPRESSION: Interval decrease in size of right apical pneumothorax with small right chest tube in place. Signed by: Ar Fenton MD on 06/29/2020 8:47 AM
[2020-06-29] MEDS: NICOTINE 14 MG/EA PATCH TOP SCH (12:30)
[2020-06-29] MEDS: ENOXAPARIN SOD INJ 40 MG/0.4 ML SYR SC SCH (16:08)
--- NOTE | 2020-06-29 16:20 | NUR ---
Called to the room by patient bc he states he accidentally pulled his chest tube out. Chest tube line is out on the floor appears with tip intact, there is no bleeding and the patient is not in any distress. Site was covered with gauze. Dr. Cabrera was notified and orders were received to remove sutures, and order PA/Lateral Xray
--- NOTE | 2020-06-29 16:27 | NUR ---
Sutures were removed from chest tube site, site was covered with Vaseline gauze.
--- NOTE | 2020-06-29 17:23 | Diagnostic Imaging Report ---
Perfusion Lung Scan NOTE: Lung ventilation studies with xenon are not being performed per the recommendation of the Society of Nuclear Medicine and Molecular Imaging. It is not possible to be certain that the ventilation system is adequately disinfected. Ventilation studies with Tc-99m DTPA particles is contraindicated because the delivery by nebulization generates too many water droplets from the patient's airway. Clinical Information: Acute onset SOB and chest pain. Acute pneumothorax. History of COPD. Comparison: Chest radiograph 06/29/2020 Discussion: Ventilation images were not obtained. See note above. Perfusion images of the lungs were obtained in multiple projections following intravenous administration of approximately 6.6 mCi of Tc-99m MAA. Distribution of tracer is irregular throughout the lungs There are no segmental perfusion defects of any size. The cardiomediastinal silhouette is unremarkable. Impression: 1. Scan findings represent a VERY LOW probability for acute pulmonary embolic disease based on the PIOPED II criteria. Concurrent ventilation study would not alter this assigned probability for acute PE. 2. Scan findings are compatible with diffuse parenchymal and/or obstructive lung disease. Signed by: Dr. Marci Elaine M.D. on 06/29/2020 5:20 PM
--- NOTE | 2020-06-29 17:55 | Progress Note ---
DATE: SUBJECTIVE: The patient pulled out his chest tube. Sutures removed by the nurse and there was last one dressing was placed over the wound. PHYSICAL EXAMINATION: VITAL SIGNS: Stable. CARDIAC: Reveals regular rate and rhythm with normal S1 and S2. LUNGS: Auscultation of lungs reveals clear breath sounds bilaterally. There is no wheezing. ABDOMEN: Soft and nontender. IMPRESSION: 1. Pneumothorax secondary to chronic obstructive pulmonary disease. 2. Chronic obstructive pulmonary disease. PLAN: The patient will go for a repeat PA and lateral chest x-ray. We will repeat the x-ray again tomorrow. If the lung is not re-collapse then he can be discharged home. MD DAISY Ramey/REJI /[id number]
--- NOTE | 2020-06-29 18:03 | Diagnostic Imaging Report ---
EXAMINATION: CHEST 2 VIEWS INDICATION: Pulled out chest tube. COMPARISON: Same day chest x-ray. FINDINGS: TUBES and LINES: Interval removal of right chest tube. LUNGS: Normal lung volumes. Lungs are clear. No consolidations. PLEURA: No interval change in tiny right apical pneumothorax. HEART AND MEDIASTINUM: The cardiomediastinal silhouette is unchanged. BONES AND SOFT TISSUES: No acute osseous lesion. Soft tissues are unremarkable. UPPER ABDOMEN: No free air under the diaphragm. IMPRESSION: No interval change in tiny right apical pneumothorax. No change in radiographic appearance of the lungs. Signed by: Negin Amezcua MD on 06/29/2020 5:59 PM
[2020-06-29] MEDS: HYDROCODONE/APAP 10MG-325MG TAB PO PRN (18:36)
[2020-06-29] MEDS: ONDANSETRON HCL INJ 2MG/ML 2ML 2 MG/ML VIAL IV PRN (20:31)
[2020-06-30] VITALS: BP 101/65
[2020-06-30 01:20] VITALS: BP 100/62
--- NOTE | 2020-06-30 01:26 | Progress Note ---
DATE: 06/29/2020 Medicine Progress Note SUBJECTIVE: The patient was seen and evaluated approximately around 1:05 this afternoon. The patient is doing well today with no complaints. Still has a chest tube. V/Q scan was performed. LABORATORY FINDINGS: Show white count 5.8, hemoglobin 13, hematocrit 39, platelets of 194. Chemistry reviewed, stable. PT 13, INR 0.97, PTT 35. D-dimer is 0.90, slightly elevated. IMAGING STUDIES: V/Q scan was performed shows a very low probability for acute pulmonary embolism. He does have evidence of diffuse parenchymal obstructive lung disease. Lower extremity venous Doppler shows no evidence of DVT. Chest x-ray shows still a tiny right apical pneumothorax. PHYSICAL EXAMINATION: VITAL SIGNS: Temperature is 97.9, pulse is 50, respiratory rate is 20, blood pressure is 121/65, pulse ox 98% on room air. GENERAL: No acute distress. Alert and oriented x3. Cooperative on examination. PULMONARY: Clear to auscultation bilaterally. No wheezing, no rales, no rhonchi, no crackles appreciated. CARDIOVASCULAR: Positive S1 and S2. No murmurs, rubs, or gallops appreciated. GI: Abdomen is soft, nondistended, and nontender to palpation. Bowel sounds present. MUSCULOSKELETAL: Strength is 5/5 throughout. No evidence of any muscle deficits on examination. No weakness appreciated. NEUROLOGIC: Cranial nerves 2 through 12 grossly intact. No evidence of any neurological deficits on exam. SKIN: Intact. Warm to touch. Good cap refill. PSYCHIATRIC: Normal affect and mood. EXTREMITIES: No edema. Good range of motion throughout. IMPRESSION: 1. Acute spontaneous pneumothorax, status post chest tube placement. 2. Chronic obstructive pulmonary disease. 3. Medical noncompliance. 4. Chronic opioid dependency. PLAN: At this time, still has a right-sided chest tube. Chest x-ray still consistent with a small area of pneumothorax. His V/Q scan was negative. We will continue same plan of care, get morning labs, Lovenox for DVT prophylaxis. Once he has been cleared by Pulmonary, the patient can be discharged to home. MD BOB Mosley/REJI /[id number]
[2020-06-30 04:00] VITALS: BP 117/62
[2020-06-30] MEDS: MORPHINE SULFATE 2 MG/ML SYR 1ML IV PRN ×3 (04:23→12:43)
--- NOTE | 2020-06-30 06:20 | NUR ---
CXR DONE.PT IS BACK TO THE UNIT IN A STABLE CONDITION.
--- NOTE | 2020-06-30 07:05 | Diagnostic Imaging Report ---
EXAMINATION: CHEST 2 VIEWS INDICATION: ^pneumothorax COMPARISON: 06/29/2020 FINDINGS: PA and lateral views TUBES and LINES: None. LUNGS: Lungs are well inflated. There is no evidence of pneumonia or pulmonary edema. PLEURA: No pleural effusion. Small right apical pneumothorax with air gap of approximately 1 cm, previously 1.3 cm. HEART AND MEDIASTINUM: The cardiomediastinal silhouette is unremarkable. BONES AND SOFT TISSUES: No acute osseous lesion. Soft tissues are unremarkable. UPPER ABDOMEN: No free air under the diaphragm. IMPRESSION: Minimal interval decrease in right apical pneumothorax when compared to prior x-ray. Signed by: Dr. Alejandro Nieto MD on 06/30/2020 7:02 AM
--- NOTE | 2020-06-30 07:13 | NUR ---
Bed side shift report given to on coming Rn.stable condition.
[2020-06-30 07:57] VITALS: BP 109/61
[2020-06-30 08:08] VITALS: BP 109/61
[2020-06-30] MEDS: FAMOTIDINE 20 MG/2 ML VIAL IV SCH (08:34)
[2020-06-30] MEDS: HYDROCODONE/APAP 10MG-325MG TAB PO PRN (10:59)
[2020-06-30] MEDS: NICOTINE 14 MG/EA PATCH TOP SCH (12:05)
[2020-06-30 12:31] VITALS: BP 111/77
--- NOTE | 2020-06-30 12:55 | NUR ---
Dr. Manjit Cabrera is here making rounds. He saw the patient at bedside and said it is OK for patient to dc home and have follow up CXR.
--- NOTE | 2020-06-30 13:33 | Progress Note ---
DATE: SUBJECTIVE: The patient feels better. He has less pain. He is not having dyspnea. PHYSICAL EXAMINATION: VITAL SIGNS: The patient is afebrile. The blood pressure is 111/77. HEENT: Shows no facial swelling or erythema. CARDIAC: Reveals regular rate and rhythm with normal S1 and S2. LUNGS: Auscultation of lungs reveals clear breath sounds bilaterally. There is no wheezing. ABDOMEN: Soft and nontender. There is no rebound or guarding. EXTREMITIES: Shows no leg edema or calf tenderness. LABORATORY DATA: CBC is within normal limits. RADIOGRAPHIC DATA: Chest x-ray shows re-expansion of the pneumothorax. There may be a tiny apical pneumothorax on the right side. IMPRESSION: 1. Pneumothorax on the right side secondary to chronic obstructive pulmonary disease. 2. Chronic obstructive pulmonary disease. PLAN: 1. The patient can be discharged home. 2. He should have a repeat chest x-ray in 3 to 7 days. 3. I emphasized multiple times the importance of not smoking. 4. I explained that the recurrent pneumothorax is possible. If he has spontaneous chest pain or difficulty breathing, he should either go to the emergency department or to his regular doctor for a chest x-ray. 5. Case discussed with the patient and nursing. MD DAISY Ramey/REJI /[id number]
[2020-06-30] MEDS ORDERED: ONDANSETRON HCL 4 MG ORAL DISINTEGRATING TAB PO PRN (13:45)
--- NOTE | 2020-06-30 14:47 | NUR ---
Discharge instructions given to the patient, he verbalized understanding. IV to the right AC was removed with tip intact.
--- NOTE | 2020-06-30 22:55 | Discharge Summary ---
FINAL DISCHARGE DIAGNOSES: 1. Spontaneous pneumothorax, status post chest tubes placed-resolved. 2. Chronic obstructive pulmonary disease. 3. Medical noncompliance. 4. Chronic opioid dependency. 5. Chronic smoker. CONSULTANTS: Pulmonary. PHYSICAL EXAMINATION: VITAL SIGNS: Temperature is 98.6, pulse is 50, respiratory rate 17, blood pressure is 111/77, and pulse ox 98% on room air. LABORATORY DATA: Show white count 5.8, hemoglobin 13.4, hematocrit 39, platelets was 194. Coagulation; PT 13, INR 0.97, PTT 35. D-dimer was 0.90. Chemistry; sodium 134, potassium 4.4, chloride 101, bicarb 23, anion gap of 10, BUN 15 and creatinine 0.82, glucose is 96, calcium is 8.8. All his troponins were found to be negative. LFTs total bilirubin was 0.7, AST 45, ALT 61, alkaline phosphatase 60, albumin was 3.9, alpha-1 antitrypsin is 133. Coronavirus not detected. IMAGING STUDIES: Chest x-ray on 06/26/2020, shows a right pneumothorax measuring up to 3.9 cm[address] He had a [address] of the chest, small right pneumothorax. Thin caliber thoracotomy tube in place. He had a V/Q scan shows a very low probability for acute pulmonary embolic disease. He does have evidence of compatible with diffuse parenchymal and/or obstructive lung disease. Chest x-ray 06/29/2020, interval decrease size of the right apical pneumothorax with right small chest tube in place. Lower extremity venous Doppler shows no evidence of any DVT. Chest x-ray, on discharge date 06/30/2020, shows a minimal interval decrease in right apical pneumothorax compared to prior chest x-ray. HOSPITAL COURSE: This is a 54-year-old male. He came into the emergency room with complaints of shortness of breath and chest pain, found to have a spontaneous pneumothorax on imaging studies. The patient had a chest tube inserted in the emergency room and Pulmonary was consulted. The patient's primary supply person was involved. The patient maintained with a chest tube in place. He had further imaging studies while here in the hospital stay. D-dimer was slightly elevated with prompting a V/Q scan found to be low probability for PE. Lower extremity Doppler was found to be negative. The patient also has a history of chronic opioid dependency as well as COPD. It was felt that the acute spontaneous pneumothorax is secondary to COPD. The patient removed the chest tube, we believe on 06/29/2020, for unknown reasons. The patient did well. A repeat chest x-ray shows very minimal apical pneumothorax. The patient was cleared for discharge by Pulmonary. I personally spoke with Pulmonary and he agreed to discharge the patient home. The patient will get a repeat chest x-ray in 3 to 10 days. I provided him three primary care physicians and also advised him to follow up with his supply person. I discussed with him in the event of any shortness of breath or any worsening symptoms, he was advised to come to the local ER, call 911 for further evaluation and management. The patient verbalized understanding and agrees to plan of care. On the day of discharge, vital signs were stable, labs reviewed and stable. The patient is seen and evaluated and examined thoroughly on the day of discharge with no other complaints. The patient verbalized understanding and agrees to plan of care to follow up accordingly as an outpatient with the primary care physician in 3-5 days for repeat chest x-ray and a supply person in same time 3-5 days. MEDICATIONS: See med reconciliation form. DISPOSITION: Home. CONDITION: Stable. DIET: Heart healthy. In the event of any worsening symptoms, the patient was advised to come back to the ED for further evaluation. Discharge summary took greater than 35 minutes. Once again, the patient must get a repeat chest x-ray as described above in the next 3-5 days by his PCP or supply person. MD BOB Mosley/REJI /[id number]
== END 2020-06-30 15:31 | disposition home or self-care (01) | DRG 200 ==
LOC: FSED 10:07 → ERHOLD 12:54 → MED/SURG2 15:28
PROVIDERS: ADMIT Internal Medicine; ATTEND Internal Medicine
DX: J93.11 Primary spontaneous pneumothorax (principal); Z68.1 Body mass index [BMI] 19.9 or less, adult; F11.29 Opioid dependence with unspecified opioid-induced disorder; J44.9 Chronic obstructive pulmonary disease, unspecified; Z91.19 Patient's noncompliance with other medical treatment and regimen; R63.6 Underweight; F17.200 Nicotine dependence, unspecified, uncomplicated; Z11.59 Encounter for screening for other viral diseases
CPT/HCPCS: 32551; 36415; 71045; 71046; 71250; 74470; 78597; 80048; 80053; 82103; 82553; 84484; 85025; 85379; 85610; 85730; 93005; 93970; 96374; 96375; 99284; A9540; J1650; J2001; J2060; J2270; J2405; U0002

== ENCOUNTER → 2020-07-08 | Outpatient (CLI) | payer BC ==
--- NOTE | 2020-07-08 10:43 | Diagnostic Imaging Report ---
EXAMINATION: CHEST 2 VIEWS INDICATION: ^[id number] ^1020 ^Chronic obstructive pulmonary disease COMPARISON: Chest radiograph 06/29/2020 FINDINGS: PA and lateral views TUBES and LINES: None. LUNGS: No focal lung consolidation. Mild right apical bullous change is stable. PLEURA: Interval resolution of the previously seen right apical pneumothorax. No pleural effusion. HEART AND MEDIASTINUM: The cardiomediastinal silhouette is unremarkable. BONES AND SOFT TISSUES: No acute osseous lesion. Soft tissues are unremarkable. UPPER ABDOMEN: No free air under the diaphragm. IMPRESSION: Interval resolution of the previously seen right pneumothorax. No acute thoracic abnormality. Signed by: Juma Zapien MD on 07/08/2020 10:40 AM
== END ==
LOC: RAD 10:10
PROVIDERS: ATTEND Internal Medicine
DX: J44.9 Chronic obstructive pulmonary disease, unspecified (principal)
CPT/HCPCS: 71046

== ENCOUNTER 2020-09-24 05:28 | Emergency (ER) | payer BC ==
[~2020-09-24] VITALS: Ht 193 cm; Wt 68.0 kg
== END 2020-09-24 05:45 | disposition left against medical advice (07) ==
LOC: ER 05:36
DX: M79.604 Pain in right leg (principal); W22.09XD Striking against other stationary object, subsequent encounter; J44.9 Chronic obstructive pulmonary disease, unspecified; F17.210 Nicotine dependence, cigarettes, uncomplicated
CPT/HCPCS: 99282

== ENCOUNTER 2021-12-27 05:00 | Emergency (ER) | payer BC, OTHER ==
[~2021-12-27] VITALS: Ht 193 cm; Wt 68.0 kg
[2021-12-27 05:40] LABS: BASOPHILS # (AUTO) 0.1 (0.0-0.1); EOSINOPHILS % 0.5 % (0.0-6.0); HEMATOCRIT 43.7 % (38.2-49.6); LYMPHOCYTES # (AUTO) 1.1 (1.0-3.2); LYMPHOCYTES % 17.8 % (18.0-39.1); MEAN CORPUSCULAR HEMOGLOBIN 32.5 pg (28-32); MEAN CORPUSCULAR HGB CONC 34.3 g/dL (31-35); MEAN CORPUSCULAR VOLUME 94.6 fL (81-99); MONOCYTES # (AUTO) 1.1 (0.2-0.8); MONOCYTES % 17.7 % (4.4-11.3); NEUTROPHILS # (AUTO) 3.9 (2.1-6.9); NEUTROPHILS % 62.7 % (38.7-80.0); PLATELET COUNT 184 x10e3/uL (140-360); RED BLOOD COUNT 4.62 x10e6/uL (4.3-5.7); RED CELL DISTRIBUTION WIDTH 12.1 % (11.7-14.4)
[2021-12-27 05:44] LABS: INR 1.02; PROTHROMBIN TIME 14.1 seconds (11.9-14.5)
[2021-12-27 05:45] LABS: PARTIAL THROMBOPLASTIN TIME 38.8 seconds (23.8-35.5)
[2021-12-27 05:55] LABS: ALBUMIN 4.2 g/dL (3.5-5.0); ALBUMIN/GLOBULIN RATIO 1.1 (0.8-2.0); ANION GAP 14.6 mmol/L (8-16); CALCIUM 9.2 mg/dL (8.4-10.2); CREATININE, SERUM 0.84 mg/dL (0.72-1.25); POTASSIUM 4.6 mmol/L (3.5-5.1)
[2021-12-27 06:02] LABS: CREATINE KINASE MB 2.1 ng/mL (0-5.0)
[2021-12-27 07:03] VITALS: BP 107/63
== END 2021-12-27 07:04 | disposition home or self-care (01) ==
LOC: ER 05:13
DX: R07.89 Other chest pain (principal); J44.9 Chronic obstructive pulmonary disease, unspecified; M54.9 Dorsalgia, unspecified; G89.29 Other chronic pain
CPT/HCPCS: 36415; 71046; 80053; 82550; 82553; 84484; 85025; 85610; 85730; 93005; 99284